=== PATIENT | female | born 1990 | race Caucasian/White ===

== ENCOUNTER 2020-12-17 08:00 | Outpatient (CLI) | payer BC, OTHER ==
--- NOTE | 2020-12-17 18:24 | XRAY Report ---
PROCEDURE: Ribs w/PA Chest LT INDICATIONS: STERNAL AND LEFT SIDED RIB PAIN TECHNIQUE: A dedicated view of each side of the ribs was acquired, along with a single view chest. COMPARISON: None FINDINGS: Surgical changes and devices: None. Bones and chest wall: No fractures or dislocations. No suspicious bony lesions. Overlying soft tis sues appear unremarkable. Lungs and pleura: No pleural effusions or pneumothorax. Lungs appear clear. Mediastinum: Mediastinal contours appear normal. Heart size is normal. IMPRESSION: No displaced rib fracture. No pneumothorax. Reviewed by: Joey Mast MD on 12/17/2020 5:22 PM AKFELY Approved by: Joey Mast MD on 12/17/2020 5:22 PM AKDT Station ID: [id number]
== END 2020-12-17 23:59 | disposition home or self-care (01) ==
LOC: DI.S 08:00
PROVIDERS: ATTEND Physician Assistant Medical
DX: R07.89 Other chest pain (principal); R07.81 Pleurodynia

== ENCOUNTER 2022-07-20 14:52 | Outpatient (CLI) | payer BC ==
[2022-07-20 15:27] LABS: BILIRUBIN,URINE NEGATIVE (NEGATIVE); GLUCOSE, URINE (UA) NEGATIVE (NEGATIVE); KETONES,URINE (UA) NEGATIVE (NEGATIVE); LEUKOCYTE ESTERASE, URINE NEGATIVE (NEGATIVE); NITRITE,URINE NEGATIVE (NEGATIVE); OCCULT BLOOD,URINE NEGATIVE (NEGATIVE); PROTEIN,URINE NEGATIVE (NEGATIVE); UROBILINOGEN,URINE 0.2 (NORMAL) E.U./dL (NORMAL)
[2022-07-20 15:29] LABS: BASOPHILS % (AUTO) 0.2 %; EOSINOPHILS # (AUTO) 0.1 10^3/uL (0.0-0.7); EOSINOPHILS % (AUTO) 1.2 %; HCT - HEMATOCRIT 34.1 % (37.0-47.0); HGB - HEMOGLOBIN 12.1 g/dL (12.0-16.0); LYMPHOCYTES # (AUTO) 1.8 10^3/uL (1.5-3.5); LYMPHOCYTES % (AUTO) 21.7 %; MEAN CORPUSCULAR HEMOGLOBIN 30.7 pg (27.0-31.0); MEAN CORPUSCULAR HGB CONC 35.5 g/dL (32.0-36.0); MEAN CORPUSCULAR VOLUME 86.5 fL (81.0-99.0); MEAN PLATELET VOLUME 10.2 fL (7.9-10.8); MONOCYTES # (AUTO) 0.4 10^3/uL (0.0-1.0); MONOCYTES % (AUTO) 5.1 %; NEUTROPHILS # (AUTO) 5.9 10^3/uL (1.5-6.6); NEUTROPHILS % (AUTO) 71.6 %; PLT - PLATELET COUNT 261 10^3/uL (130-450); RED BLOOD COUNT 3.94 10^6/uL (4.20-5.40); RED CELL DISTRIBUTION WIDTH 12.8 % (12.0-15.0); WHITE BLOOD COUNT 8.3 x10^3/uL (4.8-10.8)
[2022-07-20 15:38] LABS: CLARITY,URINE CLEAR (CLEAR)
[2022-07-20 15:45] LABS: BACTERIA,URINE None Seen /HPF (None Seen); RBC,URINE 0-5 /HPF (0-5); SQUAMOUS EPITHELIAL CELL,UR NONE SEEN (<= Few); WBC,URINE 0-3 /HPF (0-5)
--- NOTE | 2022-07-20 16:55 | Ultrasound Report ---
PROCEDURE: OB First Trimester w/TV INDICATIONS: POSITIVE TEST OUTSIDE/PRIOR DATING DATA: Last menstrual period (LMP): 05/06/2022. LMP-based estimated date of delivery (CHRIS): 02/10/2023. First dating scan (date and location): Today's exam. Estimated date of delivery (CHRIS) from first dating scan: 02/09/2023. The below data below was generated using the ultrasound CHRIS of 02/09/2023 TECHNIQUE: Real-time scanning was performed of the fetus and maternal pelvic organs, with image documentation. Endovaginal scanning was also performed to better visualize the fetus and maternal ovaries. COMPARISON: None FINDINGS: Single living intrauterine . Embryo: Present, measuring 4.0 cm, corresponding to 10 weeks 6 days. Heart rate: 157 bpm Measurement variability in dating: +/- 4 weeks by LMP, +/- 7 days by mean sac diameter (use before 6 weeks gestation if crown-rump length not able to be measured), +/- 5 days by crown-rump length (6-12 weeks gestation). Maternal organs: Ovaries are unremarkable. IMPRESSION: Single living intrauterine at 10 weeks 6 days, concordant with dating by LMP. Reviewed by: Walter Ashby on 07/20/2022 4:54 PM PDT Approved by: Walter Ashby on 07/20/2022 4:54 PM PDT Station ID: [id number]
[2022-07-21 04:08] LABS: HBsAG SCREEN Negative (Negative)
[2022-07-21 05:37] LABS: RPR Non Reactive (Non Reactive)
[2022-07-21 06:43] LABS: VARICELLA-ZOSTER AB IGG 2319 index (Immune >165)
[2022-07-21 08:11] LABS: HCV AB Non Reactive (Non Reactive); HIV SCREEN 4TH GENERATION Non Reactive (Non Reactive)
== END 2022-07-20 14:53 | disposition home or self-care (01) ==
LOC: DI 14:52
PROVIDERS: ATTEND Nurse Practitioner
DX: Z34.01 Encounter for supervision of normal first pregnancy, first trimester (principal); Z36.89 Encounter for other specified antenatal screening
CPT/HCPCS: 36415; 81001; 85025; 86592; 86762; 86787; 86803; 86850; 86900; 86901; 87086; 87340; 87389

== ENCOUNTER 2022-07-21 08:00 | Outpatient (CLI) | payer BC ==
[2022-07-21 22:13] LABS: CHLAMYDIA TRACHOMATIS DNA NEGATIVE (NEGATIVE); NEISSERIA GONORRHOEAE DNA NEGATIVE (NEGATIVE); TRICHOMONAS VAGINALIS DNA NEGATIVE (NEGATIVE)
== END 2022-07-21 23:59 | disposition home or self-care (01) ==
LOC: LAB.WC 08:00
PROVIDERS: ATTEND Nurse Practitioner
DX: Z11.3 Encounter for screening for infections with a predominantly sexual mode of transmission (principal)
CPT/HCPCS: 87491; 87591; 87661

== ENCOUNTER 2022-08-11 15:21 | Outpatient (CLI) | payer BC | END 2022-08-11 15:22 | disposition home or self-care (01) | LOC: LAB 15:21 | PROVIDERS: ATTEND Nurse Practitioner | DX: Z53.9 Procedure and treatment not carried out, unspecified reason (principal) ==

== ENCOUNTER 2022-09-21 14:25 | Outpatient (CLI) | payer BC ==
--- NOTE | 2022-09-21 18:21 | Ultrasound Report ---
PROCEDURE: OB Detailed Eval INDICATIONS: SUPERVISION OF OUTSIDE/PRIOR DATING DATA: Last menstrual period (LMP): 05/06/2022. LMP-based estimated date of delivery (CHRIS): 02/10/2023. First dating scan (date and location): 07/20/2022. Estimated date of delivery (CHRIS) from first dating scan: 02/09/2023. The below data below was generated using the ultrasound CHRIS of 02/09/2023 TECHNIQUE: Real-time scanning was performed of the fetus, with image documentation and biometric measurements. Endovaginal scanning: Not performed COMPARISON: 07/20/2022 FINDINGS: General: A single living intrauterine gestation is present. Presentation: Cephalic Placenta: Placental position is posterior, without previa. Amniotic fluid index: 10.8 cm, within normal limits for gestational age. heart rate: 153 beats per minute. Maternal cervical canal: 4.3 cm long; normal length is 2.5 cm or more. biometrics: Biparietal diameter: 4.6 cm, 19 weeks and 6 days Head circumference: 16.8 cm, 19 weeks and 3 days Abdominal circumference: 14.6 cm, 19 weeks and 6 days Femur length: 3.1 cm, 19 weeks and 5 days Estimated gestational age from initial scan: 19 weeks and 6 days Composite gestational age from present scan: 19 weeks and 5 days Estimated weight and percentile: 313 g, 41st percentile Measurement variability in biometric dating: +/- 10 days from 12-20 weeks gestation, +/- 2 weeks from 20-30 weeks gestation, +/- 3 weeks at 30 weeks gestation or later. Anatomic survey: Neuro: Ventricles are normal at less than 10 mm. Cisterna magna is normal at 3-11 mm. Cerebellum i s normal in size and morphology. Nuchal skin fold: Normal at less than 6 mm between 14 and 20 weeks gestational age. Face: Nose and lips, facial profile are normal. Spine: No evidence for spina bifida. Heart: 4-chambered heart is present, with normal ventricular outflow tracts. Diaphragm: Diaphragm is intact. Stomach: Left-sided stomach is present. Kidneys: No hydronephrosis. Normal is less than 5 mm in 2nd trimester, less than 7 mm in 3rd trimester. Cord: 3 vessel cord has orthotopic insertion. Bladder: Normal in size. Extremities: All 4 extremities are visualized. IMPRESSION: Single living intrauterine gestation with estimated sonographic gestational age of approximately 19 w eeks and 5 days. This measures concordantly with estimated gestational age by initial scan of approxi mately 19 weeks and 6 days. Estimated weight of approximately 313 [address] the fetus within the 41st percentile based on gestational age. Incidental note of a nonspecific echogenic focus in the left ventricular outflow tract. Recommend co rrelation with maternal risk factors for aneuploidy. Otherwise, normal anatomy screening survey . If no increased maternal risk factors, no follow-up ultrasound or echocardiography is indicated in low risk patients with normal anatomy scan. Reviewed by: Elliott eLa MD on 09/21/2022 5:20 PM SINA Approved by: Elliott Lea MD on 09/21/2022 5:20 PM SINA Station ID: [id number]
== END 2022-09-21 14:26 | disposition home or self-care (01) ==
LOC: DI 14:25
PROVIDERS: ATTEND Nurse Practitioner
DX: Z34.02 Encounter for supervision of normal first pregnancy, second trimester (principal); Z36.89 Encounter for other specified antenatal screening

== ENCOUNTER 2022-11-06 13:57 | Outpatient (CLI) | payer BC ==
[2022-11-06 15:50] LABS: HCT - HEMATOCRIT 33.1 % (37.0-47.0); HGB - HEMOGLOBIN 11.2 g/dL (12.0-16.0); MEAN CORPUSCULAR HEMOGLOBIN 30.6 pg (27.0-31.0); MEAN CORPUSCULAR HGB CONC 33.8 g/dL (32.0-36.0); MEAN CORPUSCULAR VOLUME 90.4 fL (81.0-99.0); RED BLOOD COUNT 3.66 10^6/uL (4.20-5.40); RED CELL DISTRIBUTION WIDTH 12.2 % (12.0-15.0); WHITE BLOOD COUNT 11.6 x10^3/uL (4.8-10.8)
[2022-11-06 16:06] LABS: ALBUMIN 3.5 g/dL (3.2-5.5); ALBUMIN/GLOBULIN RATIO 1.3 (1.0-2.2); BILIRUBIN,TOTAL 0.3 mg/dL (0.2-1.0); CALCIUM 8.9 mg/dL (8.5-10.3); CREATININE 0.5 mg/dL (0.6-1.3); POTASSIUM 3.4 mmol/L (3.5-4.5); TOTAL PROTEIN 6.3 g/dL (6.4-8.9)
== END 2022-11-06 13:58 | disposition home or self-care (01) ==
LOC: LAB 13:57
PROVIDERS: ATTEND Nurse Practitioner
DX: O99.891 Other specified diseases and conditions complicating pregnancy (principal); R25.2 Cramp and spasm; Z36.89 Encounter for other specified antenatal screening
CPT/HCPCS: 36415; 80053; 82950; 85027; 86850

== ENCOUNTER 2022-12-04 17:17 | Outpatient (CLI) | payer BC ==
--- NOTE | 2022-12-05 03:48 | Ultrasound Report ---
PROCEDURE: OB F/U or Repeat INDICATIONS: ABN US OUTSIDE/PRIOR DATING DATA: Last menstrual period (LMP): 05/06/2022. LMP-based estimated date of delivery (CHRIS): 02/10/2023. First dating scan (date and location): 07/20/2022. Estimated date of delivery (CHRIS) from first dating scan: 02/09/2023. The below data below was generated using the ultrasound CHRIS of 02/09/2023 TECHNIQUE: Real-time scanning was performed of the fetus, with image documentation and biometric measurements. COMPARISON: 09/21/2022, 07/20/2022. FINDINGS: General: A single living intrauterine gestation is present. Presentation: Cephalic Placenta: Placental position is posterior, without previa. Amniotic fluid index: 17.6 cm, within normal limits for gestational age. Largest pocket: 5 cm heart rate: 131 beats per minute. Maternal cervical canal: Not well seen. Other: A suspected small echogenic focus is redemonstrated in the left ventricular outflow tract. IMPRESSION: 1. Single living intrauterine in cephalic presentation redemonstrated. 2. Small suspected single echogenic focus redemonstrated in the left ventricular outflow tract. The f indings are again nonspecific and correlation is recommended with maternal risk factors for aneuploid y. Reviewed by: Dimitris Fung MD on 12/05/2022 3:47 AM PDT Approved by: Dimitris Fung MD on 12/05/2022 3:47 AM PDT Station ID: [id number]
== END 2022-12-04 17:18 | disposition home or self-care (01) ==
LOC: DI 17:17
PROVIDERS: ATTEND Nurse Practitioner
DX: O28.3 Abnormal ultrasonic finding on antenatal screening of mother (principal); Z3A.00 Weeks of gestation of pregnancy not specified

== ENCOUNTER 2023-01-18 08:00 | Outpatient (CLI) | payer BC | END 2023-01-18 08:01 | disposition home or self-care (01) | LOC: LAB.WC 08:00 | PROVIDERS: ATTEND Nurse Practitioner | DX: Z36.85 Encounter for antenatal screening for Streptococcus B (principal) | CPT/HCPCS: 87081; 87797 ==

== ENCOUNTER 2023-02-12 19:47 | Inpatient (IN) | payer BC ==
[2023-02-12] MEDS ORDERED: miSOPROStoL 200 MCG TABLET BC PRN (21:38)
[2023-02-12] MEDS ORDERED: METHYLERGONOVINE 0.2 MG/ML VIAL IM PRN (21:38)
[2023-02-12] MEDS ORDERED: OXYTOCIN 10 UNIT/ML VIAL IM PRN (21:38)
[2023-02-12] MEDS ORDERED: OXYTOCIN/SODIUM CHLORIDE 500 ML IV PRN (21:38)
[2023-02-12] MEDS ORDERED: miSOPROStoL 200 MCG TABLET PR PRN (21:38)
[2023-02-12] MEDS ORDERED: hydrALAZINE INJ 20 MG/ML VIAL IVP PRN ×2 (21:38)
[2023-02-12] MEDS ORDERED: LABETALOL 20 MG/4 ML SYRINGE IVP PRN ×3 (21:38)
[2023-02-12] MEDS ORDERED: TRANEXAMIC ACID IN NACL 1,000 MG/100 ML BAG IV PRN (21:38)
[2023-02-12] MEDS ORDERED: lidocaine 1% 20 ML MDV ID PRN (21:38)
[2023-02-12] MEDS ORDERED: SODIUM CHLORIDE FLUSH 0.9% 10 ML SYRINGE IVP PRN (21:38)
[2023-02-12] MEDS ORDERED: NIFEdipine 10 MG CAPSULE PO PRN (21:38)
[2023-02-12] MEDS ORDERED: CARBOPROST TROMETHAMINE 250 MCG/ML AMP IM PRN (21:38)
[2023-02-12] MEDS ORDERED: SODIUM CHLORIDE FLUSH 0.9% 10 ML SYRINGE IVP SCH (22:00)
[2023-02-12 22:43] LABS: BASOPHILS % (AUTO) 0.3 %; EOSINOPHILS # (AUTO) 0.1 10^3/uL (0.0-0.7); EOSINOPHILS % (AUTO) 0.4 %; HGB - HEMOGLOBIN 11.1 g/dL (12.0-16.0); LYMPHOCYTES # (AUTO) 1.6 10^3/uL (1.5-3.5); LYMPHOCYTES % (AUTO) 13.8 %; MEAN CORPUSCULAR HEMOGLOBIN 26.1 pg (27.0-31.0); MEAN CORPUSCULAR HGB CONC 31.7 g/dL (32.0-36.0); MEAN CORPUSCULAR VOLUME 82.2 fL (81.0-99.0); MEAN PLATELET VOLUME 12.1 fL (7.9-10.8); MONOCYTES # (AUTO) 0.7 10^3/uL (0.0-1.0); MONOCYTES % (AUTO) 5.9 %; NEUTROPHILS # (AUTO) 8.9 10^3/uL (1.5-6.6); NEUTROPHILS % (AUTO) 79.2 %; PLT - PLATELET COUNT 296 10^3/uL (130-450); RED BLOOD COUNT 4.26 10^6/uL (4.20-5.40); RED CELL DISTRIBUTION WIDTH 13.8 % (12.0-15.0); WHITE BLOOD COUNT 11.3 x10^3/uL (4.8-10.8)
[2023-02-12 23:01] LABS: ALBUMIN 3.6 g/dL (3.2-5.5); ALBUMIN/GLOBULIN RATIO 1.1 (1.0-2.2); BILIRUBIN,TOTAL 0.3 mg/dL (0.2-1.0); CALCIUM 9.3 mg/dL (8.5-10.3); CREATININE 0.6 mg/dL (0.6-1.3); POTASSIUM 3.7 mmol/L (3.5-4.5); TOTAL PROTEIN 6.9 g/dL (6.4-8.9)
[2023-02-12] MEDS ORDERED: AMPICILLIN 2 GM in SODIUM CHLORIDE 0.9% MINIBAG 100 ML IV ONE (23:06)
--- NOTE | 2023-02-12 23:16 | HISTORY & PHYSICAL EXAMINATION ---
Admit History - Visit Reason Visit Reason: Contractions - : 1 Parity: 0 Care: positive: [facility] Risk/History: positive: None Complications This : positive: None Smoking Status: Never smoker - Mother's Labs Mother's Blood Type: positive: A Mother's RH: positive: Negative GBS: positive: Group B Strep Positive Rubella Status: positive: Immune (Patient is a 32-year-old G1, P0 presenting at 40 weeks and 3 days with contractions. has been uncomplicated. Positive movement. Denies vaginal bleeding leakage of fluid.) - HPI Diagnosis/Indication for NST: Post-dates gestation Current EDU 02/10/23 Gestation 40 Weeks and 2 Days 1 Vital Signs Temperature 97.8 F 02/12/23 19:50 Heart Rate 79 02/12/23 19:50 Respiratory Rate 18 02/12/23 19:50 Blood Pressure 127/85 H 02/12/23 19:50 Temperature 98.6 F 02/12/23 22:13 Heart Rate 73 02/12/23 22:13 Respiratory Rate 18 02/12/23 22:13 Blood Pressure 132/87 H 02/12/23 22:13 O2 Saturation If not protocol: Oxygen Flow, liters/minute - NST Procedure 40+3, moderate variability, +accels, no decels reactive NST Meds/Allgy - Allergies Allergies/Adverse Reactions: Allergies Allergy/AdvReac Type Severity Reaction Status Date / Time citric acid AdvReac Emesis Uncoded 02/12/23 21:38 Review of Systems - Cardiovascular Cariovascular: denies: Chest pain - Respiratory Respiratory: denies: SOB at rest - All Other Systems All Other Systems: reports: Reviewed and negative Physical - Abdominal Exam Vital Signs: Temp Pulse Resp BP Pulse Ox O2 Flow Rate 98.6 F 73 18 132/87 H 02/12/23 22:13 02/12/23 22:13 02/12/23 22:13 02/12/23 22:13 Contraction Frequency (min/apart): 4 minutes Contraction Intensity: positive: Strong Uterine Resting Tone: positive: Soft - Monitoring Strip Review: positive: Category I - Presentation Presentation: positive: Vertex - Vaginal Exam Membranes: positive: Membranes intact Dilation (in cm): 3 Cervical Position: positive: Midposition - Speculum Exam Speculum Exam Performed: positive: No Plan for Labor - Plan For Labor I expect patient to be DC'd or transferred within 96 hours.: Yes Plan for Labor: 1. Admit to labor and delivery for management of labor 2. GBS prophylaxis 3. wellbeing reassuring- Initial presentation patient had spontaneous deceleration. I discussed this with the patient and imaging continuous monitoring. I reviewed labor plan And pain management options with patient. All questions were answered.
[2023-02-12] MEDS: LACTATED RINGERS 1,000 ML IV PRN (23:52)
[2023-02-13] MEDS: ONDANSETRON 4 MG/2 ML VIAL IVP PRN ×2 (00:35→04:56)
[2023-02-13] MEDS: fentaNYL 100 MCG/2 ML VIAL IVP PRN ×2 (03:11→08:08)
[2023-02-13] MEDS: AMPICILLIN 1 GM in SODIUM CHLORIDE 0.9% MINIBAG 100 ML IV SCH ×3 (04:47→13:08)
--- NOTE | 2023-02-13 08:13 | PROVIDER PROGRESS NOTE ---
Labor Progress Note - Uterine Monitoring Uterine Monitoring Mode: positive: External toco Contraction Intensity: positive: Strong Uterine Resting Tone: positive: Soft - Monitoring Monitor Mode: positive: External ultrasound Heart Rate Variability: positive: Moderate (6-25 bmp) Accelerations: positive: Present, 15x15 Decelerations: positive: None - Vaginal Exam Dilation (in cm): 8 Effacement (%): 80 Station: -2 Cervical Position: Midposition - Labor Progress Note Labor Progress Note/Additional Text: AROM with thick meconium, discussed with patient- peds will be called for delivery patient requesting pain medication, discussed options wellbeing is reassuring
[2023-02-13] MEDS ORDERED: ROPIVACAINE 0.2% 200 MG/100 ML BAG EP ONE (09:18)
[2023-02-13] MEDS: LACTATED RINGERS 1,000 ML IV PRN ×2 (09:18→16:50)
[2023-02-13] MEDS ORDERED: ROPIVACAINE 0.2% 200 MG/100 ML BAG EP PRN (10:04)
[2023-02-13] MEDS ORDERED: METOCLOPRAMIDE 10 MG/2 ML VIAL IVP PRN (10:04)
[2023-02-13] MEDS ORDERED: NALOXONE 0.4 MG/ML VIAL IVP PRN (10:04)
[2023-02-13] MEDS ORDERED: ONDANSETRON 4 MG/2 ML VIAL IVP PRN (10:04)
[2023-02-13] MEDS ORDERED: diphenhydrAMINE INJ 50 MG/ML VIAL IVP PRN (10:04)
[2023-02-13] MEDS ORDERED: LACTATED RINGERS 500 ML IV ONE (10:04)
[2023-02-13] MEDS ORDERED: ePHEDrine 50 MG/ML VIAL IVP PRN (10:04)
[2023-02-13] MEDS ORDERED: NALBUPHINE 10 MG/ML AMP IVP PRN (10:04)
--- NOTE | 2023-02-13 10:07 | ANESTHESIA ---
Pre-Anesthesia VS, & Labs - Diagnosis term labor, IUP - Procedure epidural for Vital Signs: Temp Pulse Resp BP Pulse Ox O2 Flow Rate 37 C 73 18 132/87 H 02/12/23 22:13 02/12/23 22:13 02/12/23 22:13 02/12/23 22:13 Height: 5 ft 6 in Weight (kg): 79.379 kg Body Mass Index: 28.2 BMI Classification: Overweight - NPO Last Fluid Intake: t/o morning - Is Patient ?: Yes - Lab Results Current Lab Results: Laboratory Tests 02/12/23 22:34: Sodium 135, Potassium 3.7, Chloride 104, Carbon Dioxide 23, Anion Gap 8.0, BUN 9, Creatinine 0.6, Estimated GFR (MDRD) 114, Glucose 77, Calcium 9.3, Total Bilirubin 0.3, AST 15, ALT 12, Alkaline Phosphatase 262 H, Total Protein 6.9, Albumin 3.6, Globulin 3.3, Albumin/Globulin Ratio 1.1 02/12/23 22:34: WBC 11.3 H, RBC 4.26, Hgb 11.1 L, Hct 35.0 L, MCV 82.2, MCH 26.1 L, MCHC 31.7 L, RDW 13.8, Plt Count 296, MPV 12.1 H, Neut # (Auto) 8.9 H, Lymph # (Auto) 1.6, [place] # (Auto) 0.7, Eos # (Auto) 0.1, Baso # (Auto) 0.0, Absolute Nucleated RBC 0.00, Nucleated RBC % 0.0 02/12/23 22:34: Blood Type A NEGATIVE, Antibody Screen POSITIVE, MARITZA, IgG Specific Not Reportable, MARITZA, Polyspecific NEGATIVE, MARITZA, C3d Specific Not Reportable, Crossmatch See Detail Fish Bones: 02/12/23 22:34 02/12/23 22:34 Home Medications and Allergies Active Medications Carboprost Tromethamine (Carboprost Tromethamine 250 Mcg/Ml Amp) 250 mcg IM .ONCE PRN PRN Reason: Hemorrhage Fentanyl (Fentanyl 100 Mcg/2 Ml Vial) 50 mcg IVP Q1H PRN PRN Reason: Severe Pain (score 7-10) Last Admin: 02/13/23 08:08 Dose: 50 mcg Hydralazine HCl (Hydralazine Inj 20 Mg/Ml Vial) 5 - 10 mg IVP Q20M PRN; Protocol PRN Reason: SBP> or= 160 OR DBP> or= 110 Hydralazine HCl (Hydralazine Inj 20 Mg/Ml Vial) 10 mg IVP .ONCE PRN; Protocol PRN Reason: SBP> or= 160 OR DBP> or= 110 Lactated Ringer's (Lr) 500 mls @ 999 mls/hr IV PRN PRN PRN Reason: NEEDED PER PROVIDER ORDERS Last Admin: 02/13/23 09:18 Dose: 125 mls/hr Oxytocin/Sodium Chloride (Pitocin/Sodium Chloride) 500 mls @ 999 mls/hr IV PRN PRN; Protocol PRN Reason: POST- HEMORR PREVENTION Tranexamic Acid (Tranexamic 1,000 Mg/100ml-Nacl) 1,000 mg in 100 mls @ 600 mls/hr IV Q30M PRN PRN Reason: EBL >1200mL and within 3hr Ampicillin Sodium 1 gm/ Sodium (Chloride) 100 mls @ 200 mls/hr IV Q4H JORDYN Last Admin: 02/13/23 08:45 Dose: 200 mls/hr Labetalol HCl (Labetalol 20 Mg/4 Ml Syringe) 20 - 80 mg IVP Q10M PRN; Protocol PRN Reason: SBP> or= 160 OR DBP> or= 110 Labetalol HCl (Labetalol 20 Mg/4 Ml Syringe) 20 mg IVP .ONCE PRN; Protocol PRN Reason: SBP> or= 160 OR DBP> or= 110 Labetalol HCl (Labetalol 20 Mg/4 Ml Syringe) 20 - 40 mg IVP Q10M PRN; Protocol PRN Reason: SBP> or= 160 OR DBP> or= 110 Lidocaine HCl (Lidocaine 1% 20 Ml Mdv) 20 ml ID .ONCE PRN PRN Reason: PERINEAL REPAIR Stop: 02/15/23 21:39 Methylergonovine Maleate (Methylergonovine 0.2 Mg/Ml Vial) 0.2 mg IM .ONCE PRN PRN Reason: Hemorrhage Misoprostol (Misoprostol 200 Mcg Tablet) 600 mcg BC .ONCE PRN PRN Reason: Hemorrhage Misoprostol (Misoprostol 200 Mcg Tablet) 800 mcg MN .ONCE PRN PRN Reason: Hemorrhage Nifedipine (Nifedipine 10 Mg Capsule) 10 - 20 mg PO Q20M PRN; Protocol PRN Reason: SBP> or= 160 OR DBP> or= 110 Ondansetron HCl (Ondansetron 4 Mg/2 Ml Vial) 4 mg IVP Q4HR PRN PRN Reason: Nausea / Vomiting Last Admin: 02/13/23 04:56 Dose: 4 mg Oxytocin (Oxytocin 10 Unit/Ml Vial) 10 unit IM .ONCE PRN PRN Reason: Step One if no IV access. Sodium Chloride (Sodium Chloride Flush 0.9% 10 Ml Syringe) 10 ml IVP PRN PRN PRN Reason: NEEDED PER PROVIDER ORDERS Sodium Chloride (Sodium Chloride Flush 0.9% 10 Ml Syringe) 10 ml IVP Q8H JORDYN Allergies/Adverse Reactions: Allergies Allergy/AdvReac Type Severity Reaction Status Date / Time citric acid AdvReac Emesis Uncoded 02/12/23 21:38 Anes History & Medical History - Anesthetic History Anesthesia Complications: reports: No previous complications Family history of Anesthesia Complications: Denies Family history of Malignant Hyperthermia: Denies - Medical History Smoking Status: Never smoker - Obstetrical History : 1 Parity: 0 Events: reports: None Complications: reports: None Exam General: Alert, Oriented x3, Cooperative Dental: WNL Respiratory: No respiratory distress Cardiovascular: Regular rate Mental/Cognitive Status: Alert/Oriented X3, Normal for patient Cognitive Status: Within normal limits Plan Anesthesia Type: Epidural Consent for Procedure(s) Verified and Reviewed: Yes Code Status: Attempt Resuscitation ASA classification: 2-Mild systemic disease Is this case an emergency?: No
--- NOTE | 2023-02-13 12:18 | PROVIDER PROGRESS NOTE ---
Labor Progress Note - Uterine Monitoring Uterine Monitoring Mode: positive: External toco Contraction Frequency (min/apart): 3-4 Contraction Intensity: positive: Strong Uterine Resting Tone: positive: Soft - Monitoring Monitor Mode: positive: External ultrasound Heart Rate Variability: positive: Moderate (6-25 bmp) Accelerations: positive: Present, 15x15 Decelerations: positive: None Strip Review: positive: Category I - Vaginal Exam Dilation (in cm): 9 - Labor Progress Note Labor Progress Note/Additional Text: Patient comfortable with epidural. wellbeing is reassuring
[2023-02-13] MEDS ORDERED: LEVONORGESTREL 20 MCG/24H IUD IY ONE (13:24)
--- NOTE | 2023-02-13 14:44 | PROVIDER PROGRESS NOTE ---
Labor Progress Note - Uterine Monitoring Uterine Monitoring Mode: positive: External toco Contraction Intensity: positive: Strong Uterine Resting Tone: positive: Soft - Monitoring Monitor Mode: positive: External ultrasound Heart Rate Variability: positive: Moderate (6-25 bmp) Accelerations: positive: Present, 15x15 Decelerations: positive: Late (decel to 90s for 4 minutes) - Vaginal Exam Dilation (in cm): 10 Effacement (%): 100 Station: 1 - Labor Progress Note Labor Progress Note/Additional Text: Patient repositioned to side, resolution of heart rate deceleration
--- NOTE | 2023-02-13 16:18 | PROVIDER PROGRESS NOTE ---
Labor Progress Note - Uterine Monitoring Uterine Monitoring Mode: positive: External toco Contraction Frequency (min/apart): 3-5 Contraction Intensity: positive: Strong Uterine Resting Tone: positive: Soft - Monitoring Monitor Mode: positive: External ultrasound Heart Rate Variability: positive: Moderate (6-25 bmp) Accelerations: positive: Absent Decelerations: positive: None Strip Review: positive: Category I - Vaginal Exam Dilation (in cm): 10 Effacement (%): 100 Station: 1 - Labor Progress Note Labor Progress Note/Additional Text: Discussed starting Pitocin to increase frequency of contractions. Risk, benefits, and alternatives discussed with patient all questions answered.
[2023-02-13] MEDS ORDERED: OXYTOCIN/SODIUM CHLORIDE 500 ML IV SCH (17:00)
--- NOTE | 2023-02-13 17:41 | PROVIDER PROGRESS NOTE ---
Labor Progress Note - Labor Progress Note Labor Progress Note/Additional Text: Patient had prolonged deceleration. Discussed vacuum assisted delivery and section. Patient had been pushing for close to 3 hours. risks, benefits, and alternatives discussed. Patient declined and wants to continue pushing. Risks discussed and all questions answered.
[2023-02-13] MEDS ORDERED: WITCH HAZEL/GLYCERIN 1 PAD TOP PRN (19:34)
[2023-02-13] MEDS ORDERED: IBUPROFEN 600 MG TABLET PO SCH (20:00)
[2023-02-13] MEDS ORDERED: oxyCODONE 5 MG TABLET PO PRN (21:58)
--- NOTE | 2023-02-13 22:14 | DELIVERY NOTE ---
Delivery Note - Labor Labor: positive: Augmented by oxytocin - Delivery Method Delivery Method: positive: Vacuum assist - Presentation Presentation: positive: Vertex, WOOD - right occiput anterior - Nuchal Cord Nuchal Cord: positive: None - Amniotic Fluid Description Amniotic Fluid Description: positive: Thick meconium - Vacuum Use Indication for Vacuum Use: positive: Prolonged 2nd stage, Suspicion of immediate or potential compromise Type of Vacuum Cup: positive: Other Number of pop-offs: 2 - Episiotomy Type Episiotomy Type: positive: None - Laceration Laceration: positive: 2nd degree - Suture Suture Type: positive: Vicryl Suture Size: positive: 2-0 - Delivery Outcome Delivery Outcome: positive: Livebirth - : positive: Placed in direct skin contact with mother, Warmed sex: positive: Female - Cord Cord: positive: 3 vessels - Placenta Placenta: positive: Intact - Estimated Blood Loss Estimated Blood Loss (in cc): 450 - Post Delivery Events Post Delivery Events: positive: No post delivery events - Delivery Comments (Free Text/Narrative) Delivery Comments (Free Text/Narrative): Vacuum Assisted Delivery Note And Mirena IUD placement Stage I Patient is a 32-year-old G1, P0 who presented at 40+ weeks in labor.Patient was GBS positive and prophylaxis was provided. Pain was controlled with An epidural. Stage II The patient pushed for 3 and half hours. There was intermittent heart rate decelerations. The patient had been offered a section which she initially declined. heart rate recovered and she continued pushing with an additional decel. At this time operative vaginal delivery versus section was offered. Risk, benefits, and alternatives were discussed at length and all questions were answered.. Recommendation was made for operative delivery. Indication for assisted delivery: 1. Prolonged secondary stage 2. non-reassuring heart tracing position and station: Right occiput anterior position at +2 station Anesthesia: Epidural Procedure: Pediatrics was notified of operative vaginal delivery. The patient was taken to the operating room for delivery. The patient was placed in high lithotomy position with adequate anesthesia confirmed. position Right occiput anterior was confirmed. Boyd catheter was in place. The kiwi vacuum was applied in typical fashion. Application was accomplished easily with placement confirmed by examination. Traction was applied over 3 contractions with the patient pushing with good descent to . Maximum vacuum pressure was within the green zone on the vacuum and the pressure was decreased between contractions. There was a total of two pop-offs. At the vacuum was removed atraumatically and delivery of the head controlled. The anterior shoulder was delivered without difficulty followed by the posterior shoulder and body. The cord was clamped and cut, and the infant handed to the pediatricians. The female (name Santiago) did well after delivery. Weight and APGARS pending. Stage III The third stage was actively managed. IV pitocin was given. The placenta delivered spontaneously and was noted to be intact with a three vessel cord. Immediately after remove the placenta, Mirena IUD was placed.The perineum was examined and A second-degree laceration was present.. Repair was done in typical fashion using 2-0 Vicryl.Uterine tone was adequate. EBL: 450 mL
[2023-02-13] MEDS ORDERED: SIMETHICONE CHEW 80 MG TABLET PO PRN (22:22)
[2023-02-13] MEDS ORDERED: LACTATED RINGERS 1,000 ML IV SCH (23:00)
[2023-02-14] MEDS: IBUPROFEN 600 MG TABLET PO SCH ×3 (05:06→21:15)
--- NOTE | 2023-02-14 11:54 | PROVIDER PROGRESS NOTE ---
Subjective - Prog Note Date Prog Note Date: 02/14/23 Prog Note Time: 11:53 - Subjective Pt reports feeling: Improved Subjective: Patient is day 1 status post vacuum-assisted vaginal delivery. Patient is doing well this morning.Patient is ambulating, tolerating a light diet, spontaneously voiding. Lochia is less than menses. Objective - Vital Signs/Intake & Output Reviewed Vital Signs: Yes Vital Signs: Vital Signs x48h Temp Pulse Resp BP Pulse Ox 02/14/23 08:13 97.9 F 78 17 107/57 L 02/14/23 05:00 98.2 F 60 16 112/64 100 Intake & Output: Intake & Output 02/11/23 02/12/23 02/13/23 02/14/23 23:59 23:59 23:59 23:59 Intake Total 1403.000 800 Output Total 115 1750 Balance 1288.000 -950 - Objective General Appearance: positive: No acute distress Respiratory: positive: Breath sounds nml Cardiovascular: positive: Regular rate & rhythm Abdomen: positive: Non-tender (Firm fundus below the umbilicus) Skin: positive: Color nml Extremities: positive: Non-tender, No pedal edema Neurologic/Psychiatric: positive: Oriented x3 - Lab Results Fish Bones: 02/12/23 22:34 02/12/23 22:34 Assessment/Plan - Problem List (1) Vacuum-assisted vaginal delivery Impression: day 1: Uncomplicated course
[2023-02-14] MEDS: DOCUSATE SODIUM 100 MG CAPSULE PO PRN ×2 (11:59→21:13)
[2023-02-14] MEDS: ACETAMINOPHEN 500 MG TABLET PO SCH (21:13)
[2023-02-15] MEDS: IBUPROFEN 600 MG TABLET PO SCH (07:56)
[2023-02-15] MEDS: DOCUSATE SODIUM 100 MG CAPSULE PO PRN (07:56)
[2023-02-15] MEDS: ACETAMINOPHEN 500 MG TABLET PO SCH (07:57)
--- NOTE | 2023-02-15 08:32 | Discharge Plan ---
Discharge Plan Problem Reviewed?: Yes Disposition: Home, Self Care Condition: Good Diet: Regular Activity Restrictions: nothing in the vagina Shower Restrictions: No No Smoking: If you smoke, Please STOP! Call for help.
--- NOTE | 2023-02-15 08:36 | DISCHARGE SUMMARY ---
Discharge Summary Discharge Date: 02/15/23 Discharging Provider: Anam Condition at Discharge: Good Discharge Disposition: 01 Home, Self Care - DIAGNOSES Admission Diagnoses: 1. intrauterine at term - HOSPITAL COURSE Hospital Course: Stage I Patient is a 32-year-old G1, P0 who presented at 40+ weeks in labor.Patient was GBS positive and prophylaxis was provided. Pain was controlled with An epidural. Stage II The patient pushed for 3 and half hours. There was intermittent heart rate decelerations. The patient had been offered a section which she initially declined. heart rate recovered and she continued pushing with an additional decel. At this time operative vaginal delivery versus section was offered. Risk, benefits, and alternatives were discussed at length and all questions were answered.. Recommendation was made for operative delivery. Indication for assisted delivery: 1. Prolonged secondary stage 2. non-reassuring heart tracing position and station: Right occiput anterior position at +2 station Anesthesia: Epidural Procedure: Pediatrics was notified of operative vaginal delivery. The patient was taken to the operating room for delivery. The patient was placed in high lithotomy position with adequate anesthesia confirmed. position Right occiput anterior was confirmed. Boyd catheter was in place. The kiwi vacuum was applied in typical fashion. Application was accomplished easily with placement confirmed by examination. Traction was applied over 3 contractions with the patient pushing with good descent to . Maximum vacuum pressure was within the green zone on the vacuum and the pressure was decreased between contractions. There was a total of two pop-offs. At the vacuum was removed atraumatically and delivery of the head controlled. The anterior shoulder was delivered without difficulty followed by the posterior shoulder and body. The cord was clamped and cut, and the infant handed to the pediatricians. The female infant (name Santiago) did well after delivery. Weight and APGARS pending. Stage III The third stage was actively managed. IV pitocin was given. The placenta delivered spontaneously and was noted to be intact with a three vessel cord. Immediately after remove the placenta, Mirena IUD was placed.The perineum was examined and A second-degree laceration was present.. Repair was done in typical fashion using 2-0 Vicryl.Uterine tone was adequate. EBL: 450 mL Patient had an uncomplicated course and was discharged to home on day 2 - ALLERGIES Allergies/Adverse Reactions: Allergies Allergy/AdvReac Type Severity Reaction Status Date / Time citric acid AdvReac Emesis Uncoded 02/12/23 21:38 - PHYSICAL EXAM AT DISCHARGE General Appearance: positive: No acute distress Respiratory: positive: Breath sounds nml Cardiovascular: positive: Regular rate & rhythm Abdomen: positive: Non-tender (firm fundus below umbilicus) Extremities: positive: Non-tender, No pedal edema - LABS Result Diagrams: 02/12/23 22:34 02/12/23 22:34 - FOLLOW UP Follow Up: follow up in office for IUD placement reviewed signs and symptoms of depression
[2023-02-15 10:04] VITALS: BP 118/63; O2SAT 99
--- NOTE | 2023-02-15 12:58 | Labor Flowsheet ---
Labor Flowsheet Datetime Report Generated by CPN: 02/15/2023 12:57 Datetime: 02/15/2023 09:56 VITAL SIGNS NBP Sys/Helga/Mean (mmHg): 118 : 63 : 74 Pulse: 76 LaborFlag: Labor Datetime: 02/13/2023 17:56 UTERINE ACTIVITY Monitor Mode: External Frequency (min): 2-4 Quality: Moderate Duration (sec): 60-90 Pattern: Normal: <= 5 Contractions in 10 Minutes Resting Tone (Palpate): Relaxed ASSESSMENT A Monitor Mode: External US FHR Baseline Rate : 140 FHR Baseline Changes: No Baseline Change Variability: Moderate 6-25 bpm Accelerations: 15X15 Decelerations: Prolonged Category: Category II Datetime: 02/13/2023 17:30 Monitor Interventions for FHR: Ultrasound Adjusted Datetime: 02/13/2023 17:16 Patient Care Comments: patient repositioned to left side Datetime: 02/13/2023 17:14 Medication Comments: pitocin turned off Datetime: 02/13/2023 16:55 MEDICATIONS Pitocin (milliunits): Increased to @ 4 Datetime: 02/13/2023 16:48 Temperature (C): 37.5 Datetime: 02/13/2023 15:59 SpO2 (%): 99 Datetime: 02/13/2023 15:48 Patient Position/Activity: Right Lateral Datetime: 02/13/2023 15:15 Comments: placed by Dr. Baltes Datetime: 02/13/2023 15:12 Pushing Position: Pushing Lithotomy Datetime: 02/13/2023 14:57 Stage 2 Comments: pt not pushing during this ctx to let baby recover Datetime: 02/13/2023 14:39 COMMUNICATION Communication: Provider at Bedside Provider Notified (Name): Dr. Baltes Datetime: 02/13/2023 14:33 STAGE 2 Pushing: Coached on Pushing Pushing Progress: No Descent with Effective Pushing; Ineffective Pushing Datetime: 02/13/2023 14:14 VAGINAL EXAM Dilatation (cm): 10.0 Effacement (%): 100 Station: 1 Exam by: Dr. Baltes Datetime: 02/13/2023 13:30 Monitor Interventions for UA: [place] Adjusted Datetime: 02/13/2023 13:10 Respirations: 16 Datetime: 02/13/2023 13:08 Antibiotics: Start Antibiotics; Ampicillin IV 1 Gm Datetime: 02/13/2023 13:00 Contraction Comments: occasional coupling Actions for Decelerations: Blood Pressure; Provider Notified Datetime: 02/13/2023 12:40 Vaginal Exam Comments: Anterior lip Datetime: 02/13/2023 12:11 Provider Reviewed Strip: Yes Strip Reviewed by: Dr. Mendieta Communication Comments: Provider notified of gutierrez replacement and patient urinary symptoms. Encou raged increased oral intake. Datetime: 02/13/2023 12:02 Vaginal Bleeding: Normal Show Cervix, Consistency: Soft Cervix, Position: Anterior Datetime: 02/13/2023 11:10 Membranes Ruptured Date/Time: 02/13/2023 07:58 Amniotic Fluid Odor: None Datetime: 02/13/2023 10:36 PAIN Pain Scale: 4 Pain Presence: Intermittent Pain Type: Contraction Pain Coping: Talking Through Contractions Pain Assessment Comments: resting Datetime: 02/13/2023 10:21 I/O Interventions: Gutierrez Cath Inserted Datetime: 02/13/2023 09:34 Epidural Procedure: Completed Epidural Procedure Other: Pump Started Datetime: 02/13/2023 09:25 PROCEDURE TIME OUT Procedure Verify: Correct Patient Identity; Correct Side and Site are Marked; Accurate Procedure Co nsent Form; Agreement on Procedure to be Done; Correct Patient Position; Safety Precautions Based on Patient History or Medication Use ANESTHESIA Anesthesia Plans: Epidural Anesthesia Comments: local lidocaine given by anesthesia Datetime: 02/13/2023 09:22 Epidural Positioning: Sitting Datetime: 02/13/2023 09:19 PATIENT CARE IV/Blood Work: IV Bolus Started Datetime: 02/13/2023 08:04 Analgesics/Sedatives: Fentanyl (mcg) @ 50 Datetime: 02/13/2023 07:58 Membrane Status: Ruptured Membranes Rupture Method: Artificial Amniotic Fluid Color: Heavy Meconium Amniotic Fluid Amount: Moderate Datetime: 02/13/2023 07:44 Notification Reason: Membrane Status Datetime: 02/13/2023 06:42 Comfort Measures: Breathing/Relaxation; Hot Shower/Tub/Spa Datetime: 02/13/2023 04:56 Antiemetics/Antacids: Zofran (mg) @ 4 Datetime: 02/13/2023 04:11 Temperature Route: Oral Datetime: 02/13/2023 03:11 Pain Relief Measures: Pain Medication Given Medications: IV Narcotics Datetime: 02/13/2023 02:01 Pain Location: Abdomen Datetime: 02/13/2023 00:24 Stage of : Labor Datetime: 02/13/2023 00:02 Breath Sounds, Left: Clear and Equal Breath Sounds, Right: Clear and Equal TEACHING Instructional Method: Verbal Plan of Care: Plan of Care Discussed; Labor Unit Routine: [place] to Room; Call Agrawal; Bed; IV Pumps; Safety/Fall Risk Prevention; Bathroom Privi leges Pain Management: Comfort Measures Datetime: 02/12/2023 23:58 MATERNAL ASSESSMENT Level of Consciousness: Alert Headache: Denies Nausea/Vomiting: Hx of Nausea/Vomiting RUQ Epigastric Pain: Denies
== END 2023-02-15 12:15 | disposition home or self-care (01) | DRG 807 ==
LOC: WFO 19:47 → FBP 19:48 → WFO 21:50
PROVIDERS: ADMIT Obstetrics & Gynecology Obstetrics; ATTEND Obstetrics & Gynecology Obstetrics
PROC: 10D07Z6 Extraction of Products of Conception, Vacuum, Via Natural or Artificial Opening (ICD-10-PCS; principal; 2023-02-13)
PROC: 0KQM0ZZ Repair Perineum Muscle, Open Approach (ICD-10-PCS; 2023-02-13)
PROC: 10907ZC Drainage of Amniotic Fluid, Therapeutic from Products of Conception, Via Natural or Artificial Opening (ICD-10-PCS; 2023-02-13)
DX: O99.824 Streptococcus B carrier state complicating childbirth (principal); Z37.0 Single live birth; Z3A.40 40 weeks gestation of pregnancy; O76 Abnormality in fetal heart rate and rhythm complicating labor and delivery; O63.1 Prolonged second stage (of labor); O70.1 Second degree perineal laceration during delivery; O77.0 Labor and delivery complicated by meconium in amniotic fluid
CPT/HCPCS: 59409; 80053; 85025; 86850; 86870; 86880; 86900; 86901; 86922; 99215; A9270; J7120; J7298